=== PATIENT | female | born 1965 | race Two or more races ===

== ENCOUNTER 2016-03-23 13:29 | Emergency (ER) | payer OTHER ==
--- NOTE | 2016-03-23 14:32 | PDOC ---
History of Present Illness - General History Source: Patient Exam Limitations: No Limitations - History of Present Illness Initial Comments: 03/23/16 15:36 The patient is a 50 year old female with past surgical history of cholecystectomy, umbilical hernia repair (both in September 2015) who presents to the ED with complaints of intermittent left lower quadrant, and left flank pain. She also reports mild epigastric pain when eating and notes one episode of diarrhea this morning, but denies any nausea or vomiting. She also notes episodes of light pink urine last evening, but denies any dysuria, frequency, hesitancy. She denies any vaginal discharge. The patient reports experiencing the same pain that she felt before her surgeries. She denies any recent illness , fevers or chills. LMP was in January 01. <Christine Kaur - Last Filed: 03/23/16 15:57> <Jace Hathaway - Last Filed: 03/23/16 16:09> - General Chief Complaint: Pain, Acute Stated Complaint: abdominal pain/lower back pain Time Seen by Provider: 03/23/16 13:48 Past History <Christine Kaur - Last Filed: 03/23/16 15:57> <Jace Hathaway - Last Filed: 03/23/16 16:09> - Past Medical History Allergies/Adverse Reactions: Allergies Allergy/AdvReac Type Severity Reaction Status Date / Time No Known Allergies Allergy Verified 03/23/16 15:00 Home Medications: Ambulatory Orders Cephalexin [Keflex] 500 mg PO TID #21 capsule 03/23/16 Famotidine [Pepcid] 40 mg PO BID #60 tablet 03/23/16 Review of Systems - Review of Systems Able to Perform ROS?: Yes Comments:: 03/23/16 15:36 CONSTITUTIONAL: Absent: Fever, Chills, Diaphoresis, Generalized Weakness, Malaise, Loss of Appetite HEENT: Absent: Rhinorrhea, Nasal Congestion, Throat Pain, Throat Swelling, Difficulty Swallowing, Mouth Swelling, Ear Pain, Eye Pain, Visual Changes GASTROINTESTINAL: Present: Left lower quadrant pain, epigastric pain, diarrhea, left flank pain GENITOURINARY: Present: hematuria CARDIOVASCULAR: Absent: Chest Pain, Syncope, Palpitations, Irregular Heart Rate, Lightheadedness , Peripheral Edema MUSCULOSKELETAL: Absent: Myalgia, Arthralgia, Joint Swelling, Back pain, Neck Pain SKIN: Absent: Rash, Itching, Pallor All Other Systems: Reviewed and Negative <Christine Kaur - Last Filed: 03/23/16 15:57> *Physical Exam - Vital Signs Last Vital Signs Temp Pulse Resp BP Pulse Ox 98.4 F 80 18 128/79 100 03/23/16 15:01 03/23/16 15:01 03/23/16 15:01 03/23/16 15:01 03/23/16 15:01 - Physical Exam Comments: 03/23/16 15:38 GENERAL: The patient is awake, alert, and fully oriented, in no acute distress. HEAD: Normal with no signs of trauma. EYES: Pupils equal, round and reactive to light, extraocular movements intact, sclera anicteric, conjunctiva clear. ENT: Ears normal, nares patent, oropharynx clear without exudates. Moist mucous membranes. NECK: Normal range of motion, supple without lymphadenopathy, JVD, or masses. LUNGS: Breath sounds equal, clear to auscultation bilaterally. No wheezes, and no crackles. HEART: Regular rate and rhythm, normal S1 and S2 without murmur, rub or gallop. ABDOMEN: Negative murphys, negative McBurneys. Soft, nontender on deep palpation , normoactive bowel sounds. No guarding, no rebound. No masses. BACK: No CVAT. No flank tenderness. EXTREMITIES: Normal range of motion, no edema. No clubbing or cyanosis. No cords, erythema, or tenderness. NEUROLOGICAL: Cranial nerves grossly intact. Normal speech, normal gait. PSYCH: Normal mood, normal affect. SKIN: Warm, Dry, normal turgor, no rashes or lesions noted. <Christine Kaur - Last Filed: 03/23/16 15:57> Heart Score/ECG Review - ECG Intrepretation Comment:: 03/23/16 15:44 Twelve-lead EKG was reviewed by me. The rhythm is normal sinus rhythm at a rate of 70 bpm. The axis is normal. The intervals are normal. There are no acute ST elevations or depressions. There are no abnormal T waves. Impression : Normal 12-lead EKG. <Jace Hathaway - Last Filed: 03/23/16 16:09> ED Treatment Course - LABORATORY CBC & Chemistry Diagram: 03/23/16 15:30 03/23/16 15:30 - ADDITIONAL ORDERS Additional order review: Laboratory Results 03/23/16 15:21 Urine Color Yellow Urine Appearance Clear Urine pH 5.0 Ur Specific [place] 1.020 Urine Protein Negative Urine Glucose (UA) Negative Urine Ketones Negative Urine Blood Negative Urine Nitrite Negative Urine Bilirubin Negative Urine Urobilinogen 0.2 e.u/dl Ur Leukocyte Esterase 1+ H <Christine Kaur - Last Filed: 03/23/16 15:57> - LABORATORY CBC & Chemistry Diagram: 03/23/16 15:30 03/23/16 15:30 <Jace Hathaway - Last Filed: 03/23/16 16:09> Medical Decision Making - Medical Decision Making 03/23/16 16:03 Patient is a 50-year-old woman who presents complaining of abdominal pain in the left lower quadrant as well as the epigastrium and left flank. There is no fever, no vomiting, an isolated episode of mild diarrhea, and a benign abdominal examination. Laboratory workup is notable only for pyuria with positive leukocyte esterase on the urinalysis. Notably, her CBC has a white blood cell count of 6, going against diagnoses such as diverticulitis or other infectious disease. I suspect a UTI as the cause of the symptoms. The epigastric discomfort may be related to the UTI. However could also be related to dyspepsia. Patient will be treated with Keflex and Pepcid. She will be referred back to her primary care physician for further evaluation this week. Laboratory Results - last 24 hr 03/23/16 03/23/16 03/23/16 15:21 15:30 15:30 WBC 6.1 RBC 4.15 Hgb 11.5 Hct 35.3 MCV 85.0 MCHC 32.6 RDW 15.8 H Plt Count 293 MPV 9.1 Neutrophils % 60.5 Lymphocytes % 27.0 Monocytes % 10.4 H Eosinophils % 1.1 Basophils % 1.0 Sodium 137 Potassium 3.7 Chloride 106 Carbon Dioxide 23 Anion Gap 8 BUN 11 Creatinine 0.6 Creat Clearance w eGFR > 60 Random Glucose 111 H Calcium 9.2 Total Bilirubin 0.3 AST 24 ALT 15 Alkaline Phosphatase 90 Total Protein 7.2 Albumin 3.3 L Lipase 31 Urine Color Yellow Urine Appearance Clear Urine pH 5.0 Ur Specific [place] 1.020 Urine Protein Negative Urine Glucose (UA) Negative Urine Ketones Negative Urine Blood Negative Urine Nitrite Negative Urine Bilirubin Negative Urine Urobilinogen 0.2 e.u/dl Ur Leukocyte Esterase 1+ H Urine RBC 0-2 Urine WBC 10-15 Ur Epithelial Cells Few Urine Bacteria Few Urine HCG, Qual Negative <Jace Hathaway - Last Filed: 03/23/16 16:09> *DC/Admit/Observation/Transfer - Attestations Scribe Attestion: 03/23/16 15:40 Documentation prepared by Christine Kaur, acting as medical service technician for Jace Hathaway MD. <Christine Kaur - Last Filed: 03/23/16 15:57> - Discharge Dispostion Admit: No <Jace Hathaway - Last Filed: 03/23/16 16:09> Diagnosis at time of Disposition: Abdominal pain Qualifiers: Abdominal location: left lower quadrant Qualified Code(s): R10.32 - Left lower quadrant pain Urinary tract infection Qualifiers: Urinary tract infection type: acute cystitis Hematuria presence: without hematuria Qualified Code(s): N30.00 - Acute cystitis without hematuria - Discharge Dispostion Disposition: HOME Condition at time of disposition: Stable - Prescriptions Prescriptions: Cephalexin [Keflex] 500 mg PO TID #21 capsule Famotidine [Pepcid] 40 mg PO BID #60 tablet - Patient Instructions Printed Discharge Instructions: DI for Urinary Tract Infection (UTI) Additional Instructions: Today you were evaluated for abdominal pain. The blood tests all came out normal. The urine test shows a urinary tract infection. Urinary tract infections can often cause abdominal discomfort. Take Keflex antibiotic 3 times a day for 7 days to clear up the urinary tract infection. Take Pepcid 40 mg twice a day for stomach acid. Follow-up this week with your primary care physician. Bring a copy of all of your lab results with you to your appointment. Return to the emergency department for any severe or progressive symptoms.
[2016-03-23 15:08] VITALS: BP 128/79; PULSE 80; TEMP 98.4; BMI 32.3
[2016-03-23 15:32] LABS: URINE APPEARANCE Clear; URINE BILIRUBIN Negative (NEGATIVE); URINE BLOOD Negative (NEGATIVE); URINE COLOR YELLOW; URINE GLUCOSE (UA) Negative (NEGATIVE); URINE KETONE Negative (NEGATIVE); URINE LEUK ESTERASE 1+ (NEGATIVE); URINE NITRITE Negative (NEGATIVE); URINE PROTEIN Negative (NEGATIVE); URINE UROBILINOGEN 0.2 E.U/dl (0.2-1.0)
[2016-03-23] MEDS ORDERED: FAMOTIDINE 20 MG/50 ML IVPB 50 ML IVPB ONE ×2 (15:32→15:44)
[2016-03-23] MEDS ORDERED: ONDANSETRON 4 MG/2 ML VIAL IVPB ONE (15:32)
[2016-03-23 15:39] LABS: URINE BACTERIA FEW /hpf (NEGATIVE); URINE RBC 0-2 /hpf (0-3)
[2016-03-23] MEDS ORDERED: ONDANSETRON 4 MG/2 ML VIAL ONE (15:44)
[2016-03-23] MEDS ORDERED: SODIUM CHLORIDE 1,000 ML IV SCH (15:45)
[2016-03-23 15:46] LABS: EOSINOPHIL 1.1 % (0-4.5); MCH 27.7 pg (25.7-33.7); MCHC 32.6 g/dl (32.0-36.0); MEAN PLT VOLUME 9.1 fl (7.5-11.1); NEUTROPHILS 60.5 % (42.8-82.8); PLATELET COUNT 293 K/MM3 (134-434); RDW 15.8 % (11.6-15.6); WHITE BLOOD COUNT 6.1 K/mm3 (4.0-10.0)
[2016-03-23 15:59] LABS: ALBUMIN 3.3 g/dl (3.5-5.0); ALK PHOS 90 U/L (32-92); ANION GAP 8 (8-16); BILIRUBIN,TOTAL 0.3 mg/dl (0.2-1.0); CALCIUM 9.2 mg/dl (8.4-10.2); CO2 23 mmol/L (22-28); CREATININE 0.6 mg/dl (0.6-1.3); GLUCOSE,RANDOM 111 mg/dl (74-106); SGOT/AST 24 U/L (10-42); SGPT/ALT 15 U/L (10-40); TOT PROT 7.2 g/dl (6.4-8.3)
[2016-03-23] MEDS ORDERED: CEPHALEXIN MONOHYDRATE 500 MG CAPSULE (UD) PO ONE (16:09)
[2016-03-23] MEDS ORDERED: CEPHALEXIN MONOHYDRATE 500 MG CAPSULE (UD) ONE (16:11)
--- NOTE | 2016-03-23 23:42 | EKG ---
Test Reason : Blood Pressure : / mmHG Vent. Rate : 070 BPM Atrial Rate : 070 BPM P-R Int : 160 ms QRS Dur : 070 ms QT Int : 388 ms P-R-T Axes : 041 -13 010 degrees QTc Int : 419 ms NORMAL SINUS RHYTHM NORMAL ECG NO PREVIOUS ECGS AVAILABLE Confirmed by GEORGE DECKER MD ([id number]) on 03/23/2016 11:41:42 PM Referred By: MIGUEL AREVALO Confirmed By:GEORGE DECKER MD
== END 2016-03-23 16:22 | disposition home or self-care (01) ==
LOC: FER 13:29 → MERGE 13:29 → FER 16:22
PROC: 3E033GC Introduction of Other Therapeutic Substance into Peripheral Vein, Percutaneous Approach (ICD-10-PCS; principal; 2016-03-23)
DX: N30.00 Acute cystitis without hematuria (principal); R10.32 Left lower quadrant pain
CPT/HCPCS: 36415; 80053; 81003; 81015; 83690; 84703; 85025; 87086; 93005; 96365; 96375; 99284-25

== ENCOUNTER 2016-06-20 01:50 | Emergency (ER) | payer OTHER ==
[2016-06-20 02:09] VITALS: BP 148/93; PULSE 91; TEMP 97.7; BMI 32.1
[2016-06-20] MEDS ORDERED: PSEUDOEPHEDRINE HCL 60 MG TABLET PO ONE (02:16)
--- NOTE | 2016-06-20 02:23 | PDOC ---
History of Present Illness - General Chief Complaint: Cold Symptoms Stated Complaint: ALLERGIES Time Seen by Provider: 06/20/16 01:53 History Source: Patient Exam Limitations: No Limitations - History of Present Illness Initial Comments: 06/20/16 02:16 50yo Female patient presents to ED c/o nasal congestion for the past week, but today worse. Patient states she has been using OTC allergy medications with no relief. She denies any other complaints at this time. Timing/Duration: reports: week Severity: reports: moderate Past History - Travel Traveled outside of the country in the last 30 days: No Close contact w/someone who was outside of country & ill: No - Past Medical History Allergies/Adverse Reactions: Allergies Allergy/AdvReac Type Severity Reaction Status Date / Time No Known Drug Allergies Allergy Verified 06/20/16 02:07 Home Medications: Ambulatory Orders Budesonide [Rhinocort Allergy] 2 spray NS DAILY #1 spray.pump 06/20/16 Loratadine [Claritin -] 10 mg PO DAILY #30 tablet 06/20/16 Pseudoephedrine HCl [12 Hour Decongestant] 120 mg PO BID PRN #10 tablet.er MDD 2 tabs 06/20/16 Anemia: No Asthma: No Cancer: No Cardiac Disorders: No CVA: No COPD: No CHF: No Dementia: No Diabetes: No GI Disorders: No Disorders: No HTN: No Hypercholesterolemia: No Liver Disease: No Seizures: No Thyroid Disease: No - Surgical History Abdominal Surgery: Yes (hernia) Cholecystectomy: Yes - Psycho/Social/Smoking Cessation Hx Anxiety: No Suicidal Ideation: No Smoking History: Never smoked Have you smoked in the past 12 months: No Hx Alcohol Use: No Drug/Substance Use Hx: No Substance Use Type: None Hx Substance Use Treatment: No Respiratory Specific PMHX - Complaint Specific PMHX Angina: No Bronchitis: No Pneumonia: No Pulmonary Embolus: No TB (Tuberculosis): No Review of Systems - Review of Systems Able to Perform ROS?: Yes Is the patient limited [place] proficient: No Constitutional: No: Chills, Fever HEENTM: Yes: Nose Congestion. No: Eye Pain, Throat Pain, Throat Swelling, Difficulty Swallowing, Mouth Swelling Respiratory: No: Cough, Shortness of Breath, Wheezing Cardiac (ROS): No: Chest Pain, Lightheadedness, Palpitations, Syncope ABD/GI: No: Diarrhea, Nausea, Poor Appetite, Poor Fluid Intake, Vomiting : No: Dysuria Musculoskeletal: No: Back Pain Integumentary: No: Erythema Neurological: No: Seizure, Tingling, Ataxia All Other Systems: Reviewed and Negative *Physical Exam - Vital Signs Last Vital Signs Temp Pulse Resp BP Pulse Ox 97.7 F 91 H 22 148/93 100 06/20/16 02:07 06/20/16 02:07 06/20/16 02:07 06/20/16 02:07 06/20/16 02:07 - Physical Exam General Appearance: Yes: Nourished, Appropriately Dressed, Mild Distress. No: Apparent Distress, Moderate Distress, Severe Distress HEENT: positive: EOMI, PRATEEK, Normal ENT Inspection, Normal Voice, Symmetrical, TMs Normal, Pharynx Normal, Nasal Congestion, Rhinorrhea. negative: Pharyngeal Erythema, Tonsillar Exudate, Tonsillar Erythema, Sinus Tenderness, TM Bulging, TM Dull, TM Erythema Neck: positive: Trachea midline, Supple. negative: Stridor, Lymphadenopathy (R) , Lymphadenopathy (L), Tender lateral, Tender midline Respiratory/Chest: positive: Lungs Clear, Normal Breath Sounds. negative: Respiratory Distress, Labored Respiration, Rapid RR, Decreased Breath Sounds Cardiovascular: positive: Regular Rhythm, Regular Rate Musculoskeletal: positive: Normal Inspection. 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 NML intact, Fully Oriented, Alert, Normal Mood/ Affect, Normal Response, Motor Strength 5/5 *DC/Admit/Observation/Transfer Diagnosis at time of Disposition: Allergic rhinitis Qualifiers: Allergic rhinitis trigger: unspecified Allergic rhinitis seasonality: seasonal Qualified Code(s): J30.2 - Other seasonal allergic rhinitis - Discharge Dispostion Disposition: HOME Condition at time of disposition: Stable Admit: No - Prescriptions Prescriptions: Pseudoephedrine HCl [12 Hour Decongestant] 120 mg PO BID PRN #10 tablet.er MDD 2 tabs PRN Reason: Nasal Congestion Loratadine [Claritin -] 10 mg PO DAILY #30 tablet Budesonide [Rhinocort Allergy] 2 spray NS DAILY #1 spray.pump - Patient Instructions Printed Discharge Instructions: DI for Allergic Rhinitis Additional Instructions: Follow up with your doctor as needed. Print Language: YAKUT
[2016-06-20] MEDS ORDERED: PSEUDOEPHEDRINE HCL 60 MG TABLET ONE (02:27)
== END 2016-06-20 02:38 | disposition home or self-care (01) ==
LOC: JER 01:50
DX: J30.2 Other seasonal allergic rhinitis (principal)
CPT/HCPCS: 99281-25

== ENCOUNTER 2018-06-08 11:31 | Emergency (ER) | payer OTHER ==
[2018-06-08 11:40] VITALS: BP 129/77; PULSE 80; TEMP 98.4; BMI 35.2
--- NOTE | 2018-06-08 12:06 | PDOC ---
History of Present Illness - General Chief Complaint: Injury Stated Complaint: RT TOE INJURY Time Seen by Provider: 06/08/18 11:45 - History of Present Illness Initial Comments: 06/08/18 12:05 52-year-old female without comorbidities presents for evaluation of right fifth toe pain 7 days after dropping a chair on Past History - Past Medical History Allergies/Adverse Reactions: Allergies Allergy/AdvReac Type Severity Reaction Status Date / Time No Known Drug Allergies Allergy Verified 06/20/16 02:07 Home Medications: Ambulatory Orders Budesonide [Rhinocort Allergy] 2 spray NS DAILY #1 spray.pump 06/20/16 Loratadine [Claritin -] 10 mg PO DAILY #30 tablet 06/20/16 Pseudoephedrine HCl [12 Hour Decongestant] 120 mg PO BID PRN #10 tablet.er MDD 2 tabs 06/20/16 Anemia: No Asthma: No Cancer: No Cardiac Disorders: No CVA: No COPD: No CHF: No Dementia: No Diabetes: No GI Disorders: No Disorders: No HTN: No Hypercholesterolemia: No Liver Disease: No Seizures: No Thyroid Disease: No - Surgical History Abdominal Surgery: Yes (hernia) Cholecystectomy: Yes - Immunization History Immunization Up to Date: No - Suicide/Smoking/Psychosocial Hx Smoking History: Never smoked Have you smoked in the past 12 months: No Information on smoking cessation initiated: No Hx Alcohol Use: No Drug/Substance Use Hx: No Substance Use Type: None Hx Substance Use Treatment: No Review of Systems - Review of Systems Musculoskeletal: Yes: See HPI, Joint Pain *Physical Exam - Vital Signs Last Vital Signs Temp Pulse Resp BP Pulse Ox 98.4 F 80 18 129/77 100 06/08/18 11:38 06/08/18 11:38 06/08/18 11:38 06/08/18 11:38 06/08/18 11:38 - Physical Exam Comments: 06/08/18 12:05 Right foot skin color and temperature are normal range of motion of the ankle is full. There is no tenderness about the foot or the toes there is tenderness about the fifth toe without gross sensorimotor deficits. There is mild swelling about the fifth toe ED Treatment Course - RADIOLOGY Radiology Studies Ordered: Category Date Time Status TOE(S) RIGHT [RAD] Stat Radiology 06/08/18 11:58 Ordered Medical Decision Making - Medical Decision Making 06/08/18 12:40 There is a fracture at the middle phalanx of the fifth toe Ethan tape weight-bear as tolerated with the [place] shoe and crutches follow- up with orthopedics *DC/Admit/Observation/Transfer Diagnosis at time of Disposition: Fracture of toe - Discharge Dispostion Disposition: HOME Condition at time of disposition: Stable Decision to Admit order: No - Referrals Referrals: Goldy Maldonado DO [Staff Physician] - - Patient Instructions Printed Discharge Instructions: Toe Fracture, DI for Toe Fracture Additional Instructions: You may weight-bear as tolerated with the [place] shoe and crutches. Keep your toe ethan taped for support. Return to the emergency room for worsening symptoms and follow-up with orthopedic surgery in 1-2 days for further evaluation and treatment options. - Post Discharge Activity
== END 2018-06-08 12:57 | disposition home or self-care (01) ==
LOC: JERFT 11:31
PROC: 2W3UXYZ Immobilization of Right Toe using Other Device (ICD-10-PCS; principal; 2018-06-08)
DX: S92.521A Displaced fracture of middle phalanx of right lesser toe(s), initial encounter for closed fracture (principal); W20.8XXA Other cause of strike by thrown, projected or falling object, initial encounter; Y93.9 Activity, unspecified; Y92.511 Restaurant or cafe as the place of occurrence of the external cause; Y99.0 Civilian activity done for income or pay
CPT/HCPCS: 73660-TC-FY; 99281-25

== ENCOUNTER 2022-08-19 11:56 | Emergency (ER) | payer OTHER ==
[2022-08-19 12:08] VITALS: TEMP 98.5; BMI 32.5
[2022-08-19] MEDS ORDERED: EPINEPHrine/PF 1 MG/1 ML (1:1,000) AMPULE ONE (12:13)
[2022-08-19] MEDS ORDERED: EPINEPHrine 1:10,000 (P-F SYR) 1 MG/10 ML DISP.SYRIN ONE (12:13)
[2022-08-19] MEDS ORDERED: methylPREDNISolone NA SUCC 125 MG/2 ML VIAL IVPUSH ONE (12:18)
[2022-08-19] MEDS ORDERED: FAMOTIDINE 20 MG/50 ML IVPB 20 MG/50 ML MG IVPB ONE ×2 (12:18→12:26)
[2022-08-19] MEDS ORDERED: EPINEPHrine 1:1,000 0.3 MG/0.3 ML SYR IM ONE (12:18)
[2022-08-19] MEDS ORDERED: methylPREDNISolone NA SUCC 125 MG/2 ML VIAL ONE (12:26)
[2022-08-19 13:01] LABS: BASO % 0.3 % (0-2.0); HEMATOCRIT 44.8 % (32.4-45.2); HEMOGLOBIN 14.8 GM/dL (10.7-15.3); LYMPH % 51.6 % (8-40); MCH 30.3 pg (25.7-33.7); MEAN CELL VOLUME 91.7 fl (80-96); MEAN PLT VOLUME 9.9 fl (7.5-11.1); NEUT % 39.1 % (42.8-82.8); PLATELET COUNT 358 10^3/uL (134-434); RBC 4.88 M/mm3 (3.60-5.2); RDW 14.5 % (11.6-15.6); WHITE BLOOD COUNT 6.7 K/mm3 (4.0-10.0)
[2022-08-19 13:04] LABS: POTASSIUM 4.1 mmol/L (3.5-5.1)
[2022-08-19 13:06] LABS: ALBUMIN 3.4 g/dl (3.4-5.0); BLOOD UREA NITROGEN 15.6 mg/dL (7-18); CALCIUM 9.9 mg/dL (8.5-10.1)
[2022-08-19 13:09] LABS: CREATININE 0.9 mg/dL (0.55-1.3)
[2022-08-19 13:11] LABS: BILIRUBIN,TOTAL 0.6 mg/dL (0.2-1); TOT PROT 8.2 g/dl (6.4-8.2)
[2022-08-19 14:20] VITALS: BP 104/65; PULSE 79; RESP 18
== END 2022-08-19 18:55 | disposition home or self-care (01) ==
LOC: JER 11:56
PROC: 3E033GC Introduction of Other Therapeutic Substance into Peripheral Vein, Percutaneous Approach (ICD-10-PCS; principal; 2022-08-19)
PROC: 3E033GC Introduction of Other Therapeutic Substance into Peripheral Vein, Percutaneous Approach (ICD-10-PCS; 2022-08-19)
PROC: 3E033GC Introduction of Other Therapeutic Substance into Peripheral Vein, Percutaneous Approach (ICD-10-PCS; 2022-08-19)
PROC: 3E023GC Introduction of Other Therapeutic Substance into Muscle, Percutaneous Approach (ICD-10-PCS; 2022-08-19)
DX: R21 Rash and other nonspecific skin eruption (principal); R06.02 Shortness of breath; T78.2XXA Anaphylactic shock, unspecified, initial encounter
CPT/HCPCS: 36415; 71045-TC-FY; 80053; 84484; 85025; 93005; 93010; 99291; J0171

== ENCOUNTER 2024-08-18 01:00 | Emergency (ER) | payer OTHER ==
[2024-08-18 01:25] VITALS: BP 142/100; PULSE 81; RESP 18; TEMP 98.6; BMI 33.8
[2024-08-18] MEDS ORDERED: MECLIZINE HCL 25 MG TABLET (FP) ONE (01:35)
[2024-08-18] MEDS: MECLIZINE HCL 12.5 MG TABLET PO ONE (01:43)
== END 2024-08-18 02:28 | disposition home or self-care (01) ==
LOC: FER 01:00
DX: R42 Dizziness and giddiness (principal); F41.9 Anxiety disorder, unspecified; F43.9 Reaction to severe stress, unspecified
CPT/HCPCS: 82962; 99283-25